=== PATIENT | male | born 1995 | race Caucasian/White ===

== ENCOUNTER 2022-11-16 09:01 | Emergency (ER) | payer SELFPAY ==
[~2022-11-16] VITALS: Ht 185.4 cm; Wt 95.3 kg
--- NOTE | 2022-11-16 09:01 | NUR ---
BROUGHT BACK TO BED #4 AND TRIAGED, WILL ASSUME CARE.
[2022-11-16 09:02] VITALS: BP_SYST 115
--- NOTE | 2022-11-16 09:05 | NUR ---
PT STATES THAT WHILE AT WORK DOING [employer], LACERATION TO LEFT INNER WRIST/HAND WITH BLADE. BLEEDING WAS CONTROLLED AND BANDAGE APPLIED. PT STATES PAIN IS A 4/10, STATES TETANUS IS UP TO DATE.
--- NOTE | 2022-11-16 09:35 | NUR ---
DR LUGO AT BEDSIDE FOR SUTURING
--- NOTE | 2022-11-16 09:46 | NUR ---
PT TOLERATED SUTURING WELL, DRESSING BEING APPLIED BY TAWANDA BURNETT.
--- NOTE | 2022-11-16 09:48 | NUR ---
Patient given written and verbal discharge instructions and verbalizes understanding. ER MD discussed with patient the results and treatment provided. Patient in stable condition. ID arm band removed Rx of NONE given. Patient educated on pain management and to follow up with PMD. Pain Scale 0/10. Opportunity for questions provided and answered. Medication side effect fact sheet provided.
== END 2022-11-16 09:48 | disposition home or self-care (01) ==
LOC: SED 09:01
DX: S61.512A Laceration without foreign body of left wrist, initial encounter (principal); Z79.899 Other long term (current) drug therapy; W26.8XXA Contact with other sharp object(s), not elsewhere classified, initial encounter; Y93.89 Activity, other specified; Y92.89 Other specified places as the place of occurrence of the external cause; Y99.8 Other external cause status
CPT/HCPCS: 99282